=== PATIENT | female | born 1955 | race Two or more races ===

== ENCOUNTER 2016-05-31 05:36 | Inpatient (IN) | payer MEDICARE, OTHER ==
[~2016-05-31] VITALS: Ht 157.5 cm; Wt 54.4 kg
[~2016-05-31 05:36] MED LIST: ACET-868 GT; ASCO500S2 GT; ASPI81TA2 GT; CALC0.253 GT; CHOL100062 GT; DARB40VI SQ; ENAL2.5T GT; FAMO20TA8 GT; HYDR-552 GT; INSU100I19 SQ; INSU100V26 SQ; IPRA0.2S49 NEB; LEVA1.257 NEB; LEVE100S GT; METO10TA3 GT; METO25TA20 GT; NUT.237L67 GT; OMEP40CA37 GT; PRAV20TA4 GT; PROT946L GT; VIT1TABL44 GT
[2016-05-31] MEDS ORDERED: IV NS 0.9% 1,000 ML BAG IV ONE ×2 (06:00→09:30)
[2016-05-31] MEDS ORDERED: IV SET PRIMARY 1 EA INFUS.SET MC ONE ×3 (06:07→08:53)
[2016-05-31] MEDS ORDERED: IV NS 0.9% 1,000 ML ONE ×2 (06:07→08:53)
[2016-05-31 06:14] LABS: HEMATOCRIT 39 % (33-45); HEMOGLOBIN 12.8 g/dL (11.5-14.8); LYMPHOCYTES % (AUTO) 4.1 % (20.0-44.0); MEAN CORPUSCULAR HEMOGLOBIN 31 PG (26.0-33.0); MEAN CORPUSCULAR HGB CONC 33 g/dl (31.0-36.0); MEAN CORPUSCULAR VOLUME 94 fL (82-100); NEUTROPHILS % (AUTO) 93.4 % (43.0-81.0); PLATELET COUNT (AUTO) 472 /CMM (150-450); WHITE BLOOD COUNT (AUTO) 24.8 K/uL (4.3-11.0)
[2016-05-31 06:15] LABS: DIFF TOTAL % 100 %; MONOCYTES # (AUTO) 0.6 /CMM (0.1-1.30); MONOCYTES % (AUTO) 2.5 % (2.0-12.0); NEUTROPHILS # (AUTO) 23.1 /CMM (1.8-8.9)
[2016-05-31] MEDS ORDERED: IV NS 0.9% 0 ML IV ONE (06:28)
[2016-05-31] MEDS ORDERED: PANTOPRAZOLE 40 MG VIAL ONE (06:28)
[2016-05-31 06:29] LABS: CALCIUM, SERUM 12.4 mg/dL (8.5-10.1); CREATININE 2.3 mg/dL (0.6-1.3)
[2016-05-31] MEDS ORDERED: PANTOPRAZOLE 80 MG in IV NS 0.9% 500 ML IV ONE (06:30)
[2016-05-31] MEDS ORDERED: IV NS 0.9% 100 ML IV ONE ×2 (06:31→06:42)
[2016-05-31 06:33] LABS: BAND % (MANUAL) 2 % (0.0-5.0); LYMPHOCYTES % (MANUAL) 5 % (16-48); PLATELET ESTIMATE INCREASED
[2016-05-31 06:34] LABS: ALBUMIN 2.2 g/dL (3.4-5.0); BILIRUBIN,DIRECT 0.1 mg/dL (0.0-0.2); BILIRUBIN,TOTAL 0.3 mg/dL (0.2-1.0); INDIRECT BILIRUBIN 0.2 mg/dL (0.0-1.1); TOTAL PROTEIN, SERUM 8.4 g/dL (6.4-8.2)
[2016-05-31] MEDS ORDERED: MEROPENEM 1 G VIAL IV ONE (06:42)
[2016-05-31] MEDS ORDERED: IV SET PRIMARY PUMP SET 1 EA INFUS.SET MC ONE ×3 (06:42→11:33)
[2016-05-31] MEDS ORDERED: VANCOMYCIN 1 GM in IV D5W 250 ML IV ONE (07:00)
[2016-05-31] MEDS ORDERED: PANTOPRAZOLE 80 MG in IV NS 0.9% 100 ML IV ONE (07:00)
[2016-05-31] MEDS ORDERED: MEROPENEM 1 G in IV NS 0.9% 100 ML IV ONE (07:00)
[2016-05-31 07:30] LABS: LACTIC ACID 3.7 mmol/L (0.4-2.0)
[2016-05-31 07:34] LABS: *LACTIC ACID REFLEX FLAG YES
[2016-05-31] MEDS ORDERED: ATOR10TA GT (08:40)
[2016-05-31] MEDS ORDERED: AMLO10TA2 GT (08:40)
[2016-05-31] MEDS ORDERED: CALC0.253 GT (08:40)
[2016-05-31] MEDS ORDERED: ALBU1.257 IH (08:40)
[2016-05-31] MEDS ORDERED: HYDR-4076 GT (08:48)
[2016-05-31] MEDS ORDERED: HYDR-4075 GT (08:48)
[2016-05-31 08:54] LABS: INR 0.94 (0.87-1.13)
[2016-05-31 08:55] LABS: PROTHROMBIN TIME 10.2 SECS (9.5-12.7)
[2016-05-31] MEDS ORDERED: INSU100V10 SQ (08:56)
[2016-05-31] MEDS ORDERED: HYDR-3326 GT ×2 (09:23)
[2016-05-31] MEDS ORDERED: LACT1CAP61 GT (09:23)
[2016-05-31] MEDS ORDERED: TOBR300A5 IH (09:23)
[2016-05-31] MEDS ORDERED: METO75TA GT (09:23)
[2016-05-31] MEDS ORDERED: MINO100C2 GT (09:23)
[2016-05-31] MEDS ORDERED: SPIR25TA4 GT (09:23)
[2016-05-31] MEDS ORDERED: PANT40SU2 GT (09:23)
[2016-05-31] MEDS ORDERED: MULT-1185 GT (09:23)
[2016-05-31] MEDS ORDERED: GLUC1KIT IM (09:36)
[2016-05-31] MEDS ORDERED: CALC667C6 GT (09:36)
[2016-05-31 09:37] LABS: ADD UA MICROSCOPIC YES; KETONES,URINE NEGATIVE (NEGATIVE); LEUKOCYTE ESTERASE ,URINE 1+ (NEGATIVE); PH,URINE 6.5 (5.0-8.0)
[2016-05-31 09:40] VITALS: BP 155/86
[2016-05-31 09:45] LABS: ADD URINE CULTURE YES; MUCUS,URINE Moderate /LPF (None Seen); WBC,URINE 51-80 /HPF (0-3)
[2016-05-31 10:41] LABS: ABG BASE EXCESS -4.4 mmol/L; ABG HCO3 20.7 mmol/L; ABG PCO2 38.5 mmHg (35.0-45.0); ABG PH 7.349 (7.350-7.450); ABG PO2 138.2 mmHg (75.0-100.0); ABG TOTAL HEMOGLOBIN 11.9 G/dL (12.0-16.0); ALLEN TEST Pass; AaDO2 44.9 mmHg; O2Hb 97.3 % (94.0-97.0)
[2016-05-31] MEDS ORDERED: CLON1PAT TD (10:52)
[2016-05-31] MEDS ORDERED: LOSA25TA13 GT (11:04)
[2016-05-31] MEDS ORDERED: CHOL20004 GT (11:04)
[2016-05-31] MEDS ORDERED: MERO500V3 IV (11:10)
[2016-05-31] MEDS ORDERED: FEE PK DOSING 1 MIN EA MC ONE (11:30)
[2016-05-31] MEDS ORDERED: IV NS 0.9% 1,000 ML IV PRN (11:30)
[2016-05-31] MEDS ORDERED: ONDANSETRON HCL/PF 4 MG/2 ML VIAL IVP PRN (11:30)
[2016-05-31] MEDS: PANTOPRAZOLE 40 MG VIAL IV SCH ×2 (11:36→23:45)
[2016-05-31] MEDS ORDERED: VANCOMYCIN 500 MG in IV D5W 100 ML IV PRN (12:30)
[2016-05-31] MEDS: Z GUARD REMEDY 2 OZ OINT TP SCH (13:21)
[2016-05-31] MEDS ORDERED: DEXTROSE 50%-WATER 50 ML DISP.SYRIN IV PRN (13:30)
[2016-05-31] MEDS ORDERED: *INSULIN ASPART NOVOLOG 100 UNIT/ML CARTRIDGE SQ PRN (13:30)
[2016-05-31] MEDS: INSULIN ASPART NOVOLOG 100 UNIT/ML CARTRIDGE SQ SCH ×2 (14:19→17:08)
[2016-05-31] MEDS: NEOMY SULF/BACITRAC ZN/POLY 15 GM TUBE TP SCH (14:19)
[2016-05-31] MEDS: BLOOD SUGAR DIAGNOSTIC 1 EACH STRIP IN SCH ×3 (14:20→22:49)
[2016-05-31 16:00] VITALS: BP 113/62
[2016-05-31] MEDS ORDERED: SECONDARY IV SET 1 EA INFUS.SET MC ONE (17:03)
[2016-05-31] MEDS: LACTOBACILLUS RHAMNOSUS GG 1 EACH CAP.SPRINK GT SCH (17:04)
[2016-05-31] MEDS: MEROPENEM 500 MG in IV NS 0.9% 50 ML IV SCH (17:04)
[2016-05-31 20:00] VITALS: BP 143/78
[2016-05-31 20:03] VITALS: BP 143/78
[2016-05-31] MEDS ORDERED: IV D5/ 0.9% NACL 1,000 ML IV ONE (21:49)
[2016-05-31] MEDS: IV D5/ 0.9% NACL 1,000 ML IV SCH (21:53)
[2016-05-31] MEDS: INSULIN DETEMIR 100 UNIT/ML CARTRIDGE SQ SCH (22:51)
[2016-06-01] VITALS: BP 150/58
[2016-06-01 04:00] VITALS: BP 147/69
[2016-06-01] MEDS: INSULIN ASPART NOVOLOG 100 UNIT/ML CARTRIDGE SQ SCH (06:00)
[2016-06-01] MEDS: MEROPENEM 500 MG in IV NS 0.9% 50 ML IV SCH (06:29)
[2016-06-01] MEDS: BLOOD SUGAR DIAGNOSTIC 1 EACH STRIP IN SCH ×4 (06:34→23:55)
[2016-06-01 06:56] LABS: BASOPHILS % (AUTO) 0.3 % (0.0-2.0); DIFF TOTAL % 100 %; EOSINOPHILS # (AUTO) 0.1 /CMM (0.0-0.7); EOSINOPHILS % (AUTO) 0.7 % (0.0-6.0); HEMATOCRIT 32 % (33-45); HEMOGLOBIN 10.5 g/dL (11.5-14.8); LYMPHOCYTES # (AUTO) 1.5 /CMM (0.8-4.8); LYMPHOCYTES % (AUTO) 11.7 % (20.0-44.0); MEAN CORPUSCULAR HEMOGLOBIN 31 PG (26.0-33.0); MEAN CORPUSCULAR HGB CONC 33 g/dl (31.0-36.0); MEAN CORPUSCULAR VOLUME 95 fL (82-100); MONOCYTES # (AUTO) 0.4 /CMM (0.1-1.30); MONOCYTES % (AUTO) 3.2 % (2.0-12.0); NEUTROPHILS # (AUTO) 10.8 /CMM (1.8-8.9); NEUTROPHILS % (AUTO) 84.1 % (43.0-81.0); PLATELET COUNT (AUTO) 364 /CMM (150-450); RED BLOOD CELL COUNT(AUTO) 3.34 MIL/uL (4.0-5.2); WHITE BLOOD COUNT (AUTO) 12.9 K/uL (4.3-11.0)
[2016-06-01 07:11] LABS: CALCIUM, SERUM 9.7 mg/dL (8.5-10.1); CREATININE 1.8 mg/dL (0.6-1.3); PHOSPHORUS 3.4 mg/dL (2.5-4.9); POTASSIUM 3.9 mmol/L (3.5-5.1)
[2016-06-01 07:39] LABS: LACTIC ACID 1.2 mmol/L (0.4-2.0)
[2016-06-01 08:00] VITALS: BP 165/78
[2016-06-01] MEDS ORDERED: VANCOMYCIN 0.75 GM in IV D5W 250 ML IV SCH (08:00)
[2016-06-01] MEDS ORDERED: DEXTROSE 50%-WATER 50 ML DISP.SYRIN IV PRN (08:30)
[2016-06-01] MEDS: LACTOBACILLUS RHAMNOSUS GG 1 EACH CAP.SPRINK GT SCH ×2 (08:53→17:37)
[2016-06-01] MEDS: NEOMY SULF/BACITRAC ZN/POLY 15 GM TUBE TP SCH (08:56)
[2016-06-01] MEDS ORDERED: VANCOMYCIN 1 GM in IV D5W 250 ML IV SCH (09:00)
[2016-06-01] MEDS: AMLODIPINE BESYLATE 5 MG TABLET PO SCH (09:33)
[2016-06-01] MEDS ORDERED: SECONDARY IV SET 1 EA INFUS.SET MC ONE ×2 (09:34→12:38)
[2016-06-01] MEDS ORDERED: RENAL NOVASOURCE 1,000 ML BOTTLE GT PRN (10:30)
[2016-06-01] MEDS: PANTOPRAZOLE 40 MG VIAL IV SCH ×2 (11:01→23:57)
[2016-06-01] MEDS: IV D5/ 0.9% NACL 1,000 ML IV SCH (11:01)
[2016-06-01 12:00] VITALS: BP 158/85
[2016-06-01] MEDS: Magnesium 1GM/D5W 100ML PREMIX 100 ML IV SCH ×2 (12:43→14:12)
[2016-06-01 16:00] VITALS: BP 121/60
[2016-06-01] MEDS ORDERED: FLUCONAZOLE IN NS,PREMIX 100 MG in PREMIX 1 EA IV SCH ×2 (16:00)
[2016-06-01] MEDS: INSULIN REGULAR, HUMAN 100 UNIT/ML 3 ML VIAL SQ PRN (17:46)
[2016-06-01 20:00] VITALS: BP 139/72
[2016-06-01] MEDS: INSULIN DETEMIR 100 UNIT/ML CARTRIDGE SQ SCH (22:49)
[2016-06-02] VITALS: BP 155/78
[2016-06-02] MEDS: INSULIN REGULAR, HUMAN 100 UNIT/ML 3 ML VIAL SQ PRN (00:08)
[2016-06-02 04:00] VITALS: BP 164/77
[2016-06-02] MEDS: BLOOD SUGAR DIAGNOSTIC 1 EACH STRIP IN SCH ×3 (06:17→18:17)
[2016-06-02 07:48] LABS: CALCIUM, SERUM 9.2 mg/dL (8.5-10.1); CREATININE 1.6 mg/dL (0.6-1.3); POTASSIUM 3.4 mmol/L (3.5-5.1)
[2016-06-02 08:00] VITALS: BP 166/89
[2016-06-02] MEDS: LACTOBACILLUS RHAMNOSUS GG 1 EACH CAP.SPRINK GT SCH ×2 (09:00→18:14)
[2016-06-02 16:00] VITALS: BP 171/88
[2016-06-02] MEDS ORDERED: RENAL NOVASOURCE 1,000 ML BOTTLE GT PRN (17:30)
[2016-06-02] MEDS: PANTOPRAZOLE 40 MG VIAL IV SCH ×2 (18:14→23:30)
[2016-06-02] MEDS: AMLODIPINE BESYLATE 5 MG TABLET PO SCH (18:14)
[2016-06-02] MEDS: NEOMY SULF/BACITRAC ZN/POLY 15 GM TUBE TP SCH (18:28)
[2016-06-02] MEDS: Z GUARD REMEDY 2 OZ OINT TP SCH (18:28)
[2016-06-02 20:00] VITALS: BP 159/83
[2016-06-02] MEDS: INSULIN DETEMIR 100 UNIT/ML CARTRIDGE SQ SCH (22:39)
[2016-06-03] MEDS: BLOOD SUGAR DIAGNOSTIC 1 EACH STRIP IN SCH ×5 (01:24→23:35)
[2016-06-03] MEDS: INSULIN REGULAR, HUMAN 100 UNIT/ML 3 ML VIAL SQ PRN ×5 (01:28→23:43)
[2016-06-03 07:06] LABS: BASOPHILS % (AUTO) 0.1 % (0.0-2.0); DIFF TOTAL % 100 %; EOSINOPHILS # (AUTO) 0.1 /CMM (0.0-0.7); EOSINOPHILS % (AUTO) 0.4 % (0.0-6.0); HEMATOCRIT 32 % (33-45); HEMOGLOBIN 10.8 g/dL (11.5-14.8); LYMPHOCYTES # (AUTO) 1.1 /CMM (0.8-4.8); LYMPHOCYTES % (AUTO) 8.4 % (20.0-44.0); MEAN CORPUSCULAR HEMOGLOBIN 32 PG (26.0-33.0); MEAN CORPUSCULAR HGB CONC 34 g/dl (31.0-36.0); MEAN CORPUSCULAR VOLUME 94 fL (82-100); MONOCYTES # (AUTO) 0.4 /CMM (0.1-1.30); MONOCYTES % (AUTO) 3.3 % (2.0-12.0); NEUTROPHILS % (AUTO) 87.8 % (43.0-81.0); PLATELET COUNT (AUTO) 449 /CMM (150-450); RED BLOOD CELL COUNT(AUTO) 3.41 MIL/uL (4.0-5.2); WHITE BLOOD COUNT (AUTO) 13.6 K/uL (4.3-11.0)
[2016-06-03 08:00] VITALS: BP 168/83
[2016-06-03] MEDS: AMLODIPINE BESYLATE 5 MG TABLET PO SCH (08:35)
[2016-06-03] MEDS: LACTOBACILLUS RHAMNOSUS GG 1 EACH CAP.SPRINK GT SCH ×2 (08:35→17:27)
[2016-06-03 08:36] LABS: CALCIUM, SERUM 9.1 mg/dL (8.5-10.1); CREATININE 0.9 mg/dL (0.6-1.3); POTASSIUM 4.1 mmol/L (3.5-5.1)
[2016-06-03] MEDS: Z GUARD REMEDY 2 OZ OINT TP SCH (08:36)
[2016-06-03] MEDS: NEOMY SULF/BACITRAC ZN/POLY 15 GM TUBE TP SCH (08:36)
[2016-06-03] MEDS: PANTOPRAZOLE 40 MG VIAL IV SCH ×2 (11:23→23:35)
[2016-06-03 16:00] VITALS: BP 160/86
[2016-06-03 16:07] VITALS: BP 160/86
[2016-06-03] MEDS: TRAMADOL HCL 50 MG TABLET PO SCH ×2 (17:27→23:35)
[2016-06-03] MEDS ORDERED: BENAZEPRIL HCL 5 MG TABLET GT ONE (17:30)
[2016-06-03 20:00] VITALS: BP 155/81
[2016-06-03] MEDS: METOPROLOL TARTRATE 25 MG TABLET GT SCH (20:34)
[2016-06-03] MEDS: GLYTROL 1,000 ML BAG GT PRN (20:34)
[2016-06-03] MEDS: CEFAZOLIN 1 GM in IV D5W 50 ML IV SCH (20:34)
[2016-06-03] MEDS: INSULIN DETEMIR 100 UNIT/ML CARTRIDGE SQ SCH (20:36)
[2016-06-04] VITALS (7 sets, daily range): BP systolic 150–159; BP diastolic 56–81
[2016-06-04] MEDS: CEFAZOLIN 1 GM in IV D5W 50 ML IV SCH ×3 (05:08→22:42)
[2016-06-04] MEDS: INSULIN REGULAR, HUMAN 100 UNIT/ML 3 ML VIAL SQ PRN ×3 (05:19→17:08)
[2016-06-04] MEDS: BLOOD SUGAR DIAGNOSTIC 1 EACH STRIP IN SCH ×3 (05:21→17:07)
[2016-06-04 08:00] LABS: CALCIUM, SERUM 8.4 mg/dL (8.5-10.1); CREATININE 1.8 mg/dL (0.6-1.3); POTASSIUM 3.2 mmol/L (3.5-5.1)
[2016-06-04] MEDS: BENAZEPRIL HCL 10 MG TABLET GT SCH (09:39)
[2016-06-04] MEDS: TRAMADOL HCL 50 MG TABLET PO SCH ×2 (09:39→16:14)
[2016-06-04] MEDS: LACTOBACILLUS RHAMNOSUS GG 1 EACH CAP.SPRINK GT SCH ×2 (09:39→16:14)
[2016-06-04] MEDS: METOPROLOL TARTRATE 25 MG TABLET GT SCH ×2 (09:40→22:44)
[2016-06-04] MEDS: Z GUARD REMEDY 2 OZ OINT TP SCH (09:40)
[2016-06-04] MEDS: AMLODIPINE BESYLATE 5 MG TABLET PO SCH (09:40)
[2016-06-04] MEDS: INSULIN DETEMIR 100 UNIT/ML CARTRIDGE SQ SCH ×2 (09:43→22:48)
[2016-06-04] MEDS: NEOMY SULF/BACITRAC ZN/POLY 15 GM TUBE TP SCH (09:44)
[2016-06-04] MEDS: PANTOPRAZOLE 40 MG VIAL IV SCH (11:51)
[2016-06-04] MEDS: GLYTROL 1,000 ML BAG GT PRN (17:07)
[2016-06-04] MEDS ORDERED: INSULIN REGULAR, HUMAN 100 UNIT/ML 10 ML VIAL ONE (22:22)
[2016-06-04] MEDS ORDERED: INSULIN DETEMIR 100 UNIT/ML CARTRIDGE SQ ONE (22:25)
[2016-06-05] VITALS: BP_SYST 161; BP_SYST 171; BP_DIAS 81; BP_DIAS 88
[2016-06-05] MEDS: PANTOPRAZOLE 40 MG VIAL IV SCH ×2 (00:39→12:01)
[2016-06-05] MEDS: BLOOD SUGAR DIAGNOSTIC 1 EACH STRIP IN SCH ×3 (00:39→11:59)
[2016-06-05] MEDS: TRAMADOL HCL 50 MG TABLET PO SCH ×3 (00:40→16:54)
[2016-06-05] MEDS: INSULIN REGULAR, HUMAN 100 UNIT/ML 3 ML VIAL SQ PRN ×3 (00:42→12:01)
[2016-06-05 02:05] VITALS: BP 150/79
[2016-06-05 04:00] VITALS: BP_SYST 145; BP_SYST 159; BP_DIAS 84; BP_DIAS 88
[2016-06-05] MEDS: CEFAZOLIN 1 GM in IV D5W 50 ML IV SCH ×2 (06:03→12:25)
[2016-06-05] MEDS: GLYTROL 1,000 ML BAG GT PRN (06:04)
[2016-06-05 07:35] LABS: CALCIUM, SERUM 8.4 mg/dL (8.5-10.1); CREATININE 1.7 mg/dL (0.6-1.3); POTASSIUM 3.7 mmol/L (3.5-5.1)
[2016-06-05 08:00] VITALS: BP 168/83
[2016-06-05] MEDS: LACTOBACILLUS RHAMNOSUS GG 1 EACH CAP.SPRINK GT SCH (08:45)
[2016-06-05] MEDS: METOPROLOL TARTRATE 25 MG TABLET GT SCH (08:46)
[2016-06-05] MEDS: BENAZEPRIL HCL 10 MG TABLET GT SCH (08:46)
[2016-06-05] MEDS: AMLODIPINE BESYLATE 5 MG TABLET PO SCH (08:46)
[2016-06-05] MEDS: NEOMY SULF/BACITRAC ZN/POLY 15 GM TUBE TP SCH (08:47)
[2016-06-05] MEDS: INSULIN DETEMIR 100 UNIT/ML CARTRIDGE SQ SCH (09:01)
[2016-06-05 12:00] VITALS: BP 153/74
[2016-06-05] MEDS: Z GUARD REMEDY 2 OZ OINT TP SCH (12:01)
== END 2016-06-05 17:15 | DRG 871 ==
LOC: ER 05:38 → TELE1 09:17 → TELE 06-01 17:18 → MED 06-02 11:14 → TELE 06-03 20:03 → MED 06-04 11:01
PROVIDERS: ADMIT Internal Medicine; ATTEND Internal Medicine
PROC: 0DJ08ZZ Inspection of Upper Intestinal Tract, Via Natural or Artificial Opening Endoscopic (ICD-10-PCS; principal; 2016-06-02 11:14)
DX: A41.9 Sepsis, unspecified organism (principal); R53.2 Functional quadriplegia; L89.154 Pressure ulcer of sacral region, stage 4; J15.6 Pneumonia due to other Gram-negative bacteria; G93.1 Anoxic brain damage, not elsewhere classified; N39.0 Urinary tract infection, site not specified; N17.9 Acute kidney failure, unspecified; K92.0 Hematemesis; K22.10 Ulcer of esophagus without bleeding; E46 Unspecified protein-calorie malnutrition; E87.2 Acidosis; J96.11 Chronic respiratory failure with hypoxia; J98.11 Atelectasis; Z93.0 Tracheostomy status; Z93.1 Gastrostomy status; Z99.2 Dependence on renal dialysis; Z86.74 Personal history of sudden cardiac arrest; R13.10 Dysphagia, unspecified; G40.409 Other generalized epilepsy and epileptic syndromes, not intractable, without status epilepticus; D64.9 Anemia, unspecified; E11.22 Type 2 diabetes mellitus with diabetic chronic kidney disease; I12.9 Hypertensive chronic kidney disease with stage 1 through stage 4 chronic kidney disease, or unspecified chronic kidney disease; N18.3 Chronic kidney disease, stage 3 (moderate); E86.0 Dehydration; E78.5 Hyperlipidemia, unspecified; I25.10 Atherosclerotic heart disease of native coronary artery without angina pectoris; K21.9 Gastro-esophageal reflux disease without esophagitis
CPT/HCPCS: 31720; 36415; 36600; 71010-TC; 80048-TC; 80076-TC; 80202-TC; 81000-TC; 82962-TC; 83605-TC; 83690-TC; 83735-TC; 84100-TC; 85025-TC; 85730-TC; 86850-TC; 86901; 87040-TC; 87070-TC; 87081-TC; 87086-TC; 87186-TC; 94640-TC; A4216; A4606; A6253; A6402; A6403; C9113; J0690; J1450; J1815; J2185; J3370; J3475; J7030; J7040; J7042; J7060; Z7610

== ENCOUNTER 2016-07-20 22:25 | Emergency (ER) | payer MEDICARE, OTHER ==
[~2016-07-20] VITALS: Ht 157.5 cm; Wt 49.0 kg
[~2016-07-20 22:25] MED LIST changes: +ALBU1.257 IH; +AMLO10TA2 GT; +ATOR10TA GT; +CALC667C6 GT; -CHOL100062 GT; +CHOL20004 GT; +CLON1PAT TD; -DARB40VI SQ; -ENAL2.5T GT; -FAMO20TA8 GT; +GLUC1KIT IM; +HYDR-3326 GT; +HYDR-4075 GT; +HYDR-4076 GT; -INSU100I19 SQ; +INSU100V10 SQ; -IPRA0.2S49 NEB; +LACT1CAP61 GT; -LEVA1.257 NEB; +LOSA25TA13 GT; +MERO500V3 IV; -METO25TA20 GT; +METO75TA GT; +MINO100C2 GT; +MULT-1185 GT; -OMEP40CA37 GT; +PANT40SU2 GT; -PRAV20TA4 GT; +SPIR25TA4 GT; +TOBR300A5 IH; -VIT1TABL44 GT
--- NOTE | 2016-07-20 22:35 | NUR ---
bb pa from [facility] for elevated bun, creatinine and k PT BIN FROM [facility] FOR ELEVATED BUN, CREATININE AND K. PT NONVERBAL OPENS EYES. TRACH INTACT AND PATENT CONNECTED TO 02 AT 2LPM. PT NOTED WITH GTUBE INTACT AND PATENT. NO RESIDUAL NOTED. PT WITH FC INTACT. RR EVEN AND UNLABORED. NO SOB NOTED. NAD NOTED. NO NVD AT THIS TIME. PT GOWNED AND PLACED ON MONITOR. PER SNF PLACED IV ON RIGHT FA 22G.
[2016-07-20] MEDS ORDERED: LABE200T GT (22:58)
[2016-07-20] MEDS ORDERED: LEVO25TA9 GT (22:58)
[2016-07-20] MEDS ORDERED: OMEP40CA37 GT (22:58)
[2016-07-20] MEDS ORDERED: ZINC220C8 GT (22:58)
[2016-07-20] MEDS ORDERED: TRAM50TA2 GT (22:58)
[2016-07-20] MEDS ORDERED: LACO100T2 GT (22:58)
[2016-07-20] MEDS ORDERED: PIPE2.259 IV (22:58)
[2016-07-20] MEDS ORDERED: METR500T GT (22:58)
[2016-07-20] MEDS ORDERED: IPRA3AMP IH (22:58)
[2016-07-20] MEDS ORDERED: IV NS 0.9% 500 ML BAG IV ONE (23:00)
--- NOTE | 2016-07-20 23:10 | NUR ---
CALLED NURSING SUP. FOR TELE BED
[2016-07-20] MEDS ORDERED: IV NS 0.9% 500 ML IV ONE (23:17)
[2016-07-20] MEDS ORDERED: IV SET PRIMARY 1 EA INFUS.SET MC ONE (23:17)
[2016-07-20 23:26] LABS: BASOPHILS # (AUTO) 0.1 /CMM (0.0-0.2); BASOPHILS % (AUTO) 0.5 % (0.0-2.0); EOSINOPHILS # (AUTO) 0.2 /CMM (0.0-0.7); EOSINOPHILS % (AUTO) 2.2 % (0.0-6.0); HEMATOCRIT 22 % (33-45); HEMOGLOBIN 7.4 g/dL (11.5-14.8); LYMPHOCYTES # (AUTO) 1.4 /CMM (0.8-4.8); LYMPHOCYTES % (AUTO) 13.4 % (20.0-44.0); MEAN CORPUSCULAR HEMOGLOBIN 35 PG (26.0-33.0); MEAN CORPUSCULAR HGB CONC 34 g/dl (31.0-36.0); MEAN CORPUSCULAR VOLUME 102 fL (82-100); MONOCYTES # (AUTO) 0.5 /CMM (0.1-1.30); MONOCYTES % (AUTO) 4.9 % (2.0-12.0); NEUTROPHILS # (AUTO) 8.2 /CMM (1.8-8.9); PLATELET COUNT (AUTO) 392 /CMM (150-450); RDW COEFFICIENT OF VARIATION 14.8 (11.5-15.0); RED BLOOD CELL COUNT(AUTO) 2.14 MIL/uL (4.0-5.2); WHITE BLOOD COUNT (AUTO) 10.4 K/uL (4.3-11.0)
[2016-07-20 23:35] LABS: CALCIUM, SERUM 8.3 mg/dL (8.5-10.1); CREATININE 2.1 mg/dL (0.6-1.3); POTASSIUM 5.2 mmol/L (3.5-5.1)
[2016-07-20 23:39] LABS: INR 0.94 (0.87-1.13)
[2016-07-20 23:41] LABS: ALBUMIN 1.5 g/dL (3.4-5.0); BILIRUBIN,TOTAL 0.2 mg/dL (0.2-1.0); TOTAL PROTEIN, SERUM 6.2 g/dL (6.4-8.2)
[2016-07-20 23:45] LABS: TROPONIN I 0.051 ng/mL (0.00-0.056)
--- NOTE | 2016-07-20 23:53 | NUR ---
URINE COLLECTED. CALLED LAB FOR OSTEOPATHIC MEDICINE TEACHER.
[2016-07-21 00:26] LABS: BILIRUBIN,URINE NEGATIVE (NEGATIVE); BLOOD, URINE TRACE-INTA Ery/uL (NEGATIVE); COLOR,URINE YELLOW (YELLOW); KETONES,URINE NEGATIVE (NEGATIVE); LEUKOCYTE ESTERASE ,URINE 2+ (NEGATIVE); NITRITE, URINE NEGATIVE (NEGATIVE); PROTEIN,URINE 3+ mg/dl (NEGATIVE); UGLUCOSE 1+ mg/dL (NEGATIVE); UROBILINOGEN,URINE 0.2 EU/dL (0.2)
[2016-07-21 00:29] LABS: APPEARANCE,URINE CLOUDY (CLEAR)
[2016-07-21 00:35] LABS: RBC,URINE 0-2 /HPF (0-2)
[2016-07-21 00:36] LABS: ADD URINE CULTURE YES; BACTERIA,URINE None seen /HPF (None Seen); SQUAMOUS EPITHELIAL CELL,UR None Seen /HPF (None Seen)
[2016-07-21 00:37] LABS: YEAST,URINE Many /HPF (None Seen)
--- NOTE | 2016-07-21 00:59 | NUR ---
MED-RESPONSE ETA: 45-60 MINS
--- NOTE | 2016-07-21 01:25 | NUR ---
IV left hand removed. Catheter intact and site benign. Pressure and 4x4 applied to site. No bleeding noted.
[2016-07-21 02:10] VITALS: BP 126/65
--- NOTE | 2016-07-21 02:10 | NUR ---
CALLED [facility] [phone], INFORMED BEE FARMER DR. MAIKEL SERNA AWARE OF PT LABS AND OKAY TO SEND BACK TO FACILITY.
--- NOTE | 2016-07-21 02:23 | NUR ---
REPORT GIVEN TO EMS. PT TRASNFERED BACK TO [facility]IA G[facility]. PT VSS. PT HAS IV ON RIGHT FA INTACT AND PATENT PLACED BY SNF SUPERVISOR [employer]. NO S/S INFECTION OR INFILTRATION NOTED. PER EMS TOOK OVER CARE.
== END 2016-07-21 02:31 ==
LOC: ER 22:26
DX: I12.9 Hypertensive chronic kidney disease with stage 1 through stage 4 chronic kidney disease, or unspecified chronic kidney disease (principal); N18.9 Chronic kidney disease, unspecified; D64.9 Anemia, unspecified; N39.0 Urinary tract infection, site not specified; E11.9 Type 2 diabetes mellitus without complications; E78.5 Hyperlipidemia, unspecified; G40.909 Epilepsy, unspecified, not intractable, without status epilepticus; J44.9 Chronic obstructive pulmonary disease, unspecified; K21.9 Gastro-esophageal reflux disease without esophagitis; G82.50 Quadriplegia, unspecified; I51.7 Cardiomegaly; Z79.82 Long term (current) use of aspirin; Z79.4 Long term (current) use of insulin
CPT/HCPCS: 36415; 71010; 80048; 80076; 81001; 84484; 85025; 85730; 86850; 87081; 87086; 93005; 99285; A4606; J7040; 81000-TC; Z7610